=== PATIENT | female | born 1965 | race Two or more races ===

== ENCOUNTER 2016-09-30 20:39 | Emergency (ER) | payer OTHER ==
--- NOTE | 2016-09-30 23:27 | ER Document Report ---
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 She received multiple sedating medications per a family member at the bedside and when he left the room she attempted to get up out of bed and did fall. No loss of consciousness. No vomiting, weakness or numbness. No change from her baseline behavior. She does not take any anticoagulation. Has a history of multiple falls in the past for similar reasons. She has not seen her primary care physician regarding today's concerns. Patient denies any significant pain at time of arrival. Denies that anything improves or worsens or symptoms. History is otherwise limited as patient does not provide meaningful history. TRAVEL OUTSIDE OF THE [place] IN LAST 30 DAYS: No - Related Data Allergies/Adverse Reactions: esomeprazole magnesium [From Nexium] Adverse Reaction (Mild, Verified 01/10/14 07:24) upset stomach Past Medical History - General Information source: Relative - Social History Smoking Status: Never Smoker Frequency of alcohol use: None Drug Abuse: None Family History: Reviewed & Not Pertinent - Past Medical History Cardiac Medical History: Denies: Hx Coronary Artery Disease, Hx Heart Attack, Hx Hypertension Pulmonary Medical History: Denies: Hx Asthma, Hx Bronchitis, Hx COPD, Hx Pneumonia Neurological Medical History: Reports: Hx Seizures. Denies: Hx Cerebrovascular Accident Endocrine Medical History: Reports: Hx Diabetes Mellitus Type 2 Musculoskeltal Medical History: Reports Hx Arthritis Past Surgical History: Reports: Hx Neurologic Surgery. Denies: Hx Hysterectomy - Immunizations Hx Diphtheria, Pertussis, Tetanus Vaccination: Yes Review of Systems - Review of Systems Notes: Constitutional: Negative for fever. Eyes: Negative for visual changes. ENT: Negative for facial injury Cardiovascular: Negative for chest injury. Respiratory: Negative for shortness of breath. Gastrointestinal: Negative for abdominal injury. Genitourinary: Negative for genital injury Musculoskeletal: Negative for back injury. Skin: Positive for laceration/abrasions. Neurological: Positive for head injury. Physical Exam - Vital signs Vitals: Temp Pulse Resp BP Pulse Ox 97.8 F 83 14 114/63 100 09/30/16 20:46 09/30/16 20:46 09/30/16 20:46 09/30/16 20:46 09/30/16 20:46 Interpretation: Normal Notes: PHYSICAL EXAMINATION: GENERAL: Well-appearing, no acute distress. Somnolent but easily woken HEAD: 2 cm vertical laceration on the central posterior scalp without surrounding hematoma, normocephalic. EYES: Pupils equal round and reactive to light, extraocular movements intact, sclera anicteric, conjunctiva are normal. ENT: nares patent, no oral pharyngeal trauma. No hemotympanum, no Hooks's sign , no raccoon eyes. NECK: No midline cervical spine tenderness. Patient able to move their head to 45 bilaterally without any discomfort. LUNGS: Breath sounds clear to auscultation bilaterally and equal. No wheezes rales or rhonchi. HEART: Regular rate and rhythm without murmurs. CHEST WALL: No ecchymosis over the chest wall. ABDOMEN: Soft, nontender, normoactive bowel sounds. No guarding, no rebound. No abdominal bruising EXTREMITIES: Normal range of motion, no pitting or edema. No long bone deformities. BACK: No midline spinal tenderness, step-offs, or deformities. NEUROLOGICAL: Face symmetric. Tongue protrudes midline. Extraocular motions intact. Pupils are 2 mm and equally reactive. No dysarthria. 5 out of 5 strength in both the distal and proximal upper and lower extremities bilaterally. Sensation is grossly intact throughout. PSYCH: Moderately confused which patient's family states is baseline SKIN: Warm, Dry, normal turgor, 2 cm vertical laceration in the posterior scalp Course - Re-evaluation Re-evalutation: 10/01/16 03:33 Patient arrives after a mechanical fall. She did sustain a 2 cm laceration to the central posterior scalp. Tetanus is already up to date. Luann received multiple sedating medications prior to this fall. No focal neurologic deficits on exam, no evidence of basilar skull fracture on exam without evidence of hemotympanum, raccoon eyes, or periauricular hematoma. No papilledema. Patient is not on anticoagulation. No loss of consciousness. No episodes of vomiting. However, at time of my initial assessment patient was quite sedated so CT of the head was obtained to exclude intracranial bleed is the etiology of patient's somnolence. This is negative for any acute intracranial pathology. On reassessment, patient is awake and at her baseline per family at the bedside. The laceration on her scalp was closed with 2 leni.At this time will discharge with return precautions and follow-up recommendations. Verbal discharge instructions given a the bedside and opportunity for questions given. Medication warnings reviewed. Family is in agreement with this plan and has verbalized understanding of return precautions and the need for primary care follow-up in the next 24-72 hours. - Vital Signs Vital signs: Temp Pulse Resp BP Pulse Ox 97.8 F 89 16 115/62 100 09/30/16 20:46 09/30/16 23:46 09/30/16 23:46 09/30/16 23:46 09/30/16 23:46 - Laboratory Laboratory results interpreted by me: 09/30/16 23:38 POC Glucose 221 H - Diagnostic Test Radiology reviewed: Image reviewed, Reports reviewed Radiology results interpreted by me: 10/01/16 03:35 CT head: No acute intracranial bleed Procedures - Laceration/Wound Repair Head Wound length (cm): 2 Wound's Depth, Shape: Superficial Wound explored: Clean Irrigated w/ Saline (mLs): 500 Wound Debrided: Moderate Wound Repaired With: [place] Number of Sutures: 2 - Leni Layer Closure?: No Post-procedure NV exam normal: Yes Complications: No Discharge - Discharge Clinical Impression: Scalp laceration Qualifiers: Encounter type: initial encounter Qualified Code(s): S01.01XA - Laceration without foreign body of scalp, initial encounter Head trauma Qualifiers: Encounter type: initial encounter Qualified Code(s): S09.90XA - Unspecified injury of head, initial encounter Condition: Good Disposition: HOME, SELF-CARE Additional Instructions: You have likely sustained a contusion (bruise) to your head. Your head CT is normal and does not show any evidence of a bleed into your brain. Return if you develop persistent vomiting, weakness, numbness, or confusion. Please return to your primary doctor, the ED, or an urgent care in 7 days for staple removal. Return immediately if you develop spreading redness around the wound, pus from the wound, worsening pain, or a fever of >100.4. Keep the area clean and dry. Wash gently with soap and water twice daily and cover with antibiotic ointment.
[2016-09-30 23:50] VITALS: BP 115/62
== END 2016-09-30 23:45 | disposition home or self-care (01) ==
LOC: ER 20:39
PROC: 0HQ0XZZ Repair Scalp Skin, External Approach (ICD-10-PCS; principal; 2016-09-30)
DX: S01.01XA Laceration without foreign body of scalp, initial encounter (principal); S09.90XA Unspecified injury of head, initial encounter; W19.XXXA Unspecified fall, initial encounter; Z86.73 Personal history of transient ischemic attack (TIA), and cerebral infarction without residual deficits
CPT/HCPCS: 70450; 82962; 99284

== ENCOUNTER → 2016-10-08 | Outpatient (CLI) | payer OTHER | LOC: CRS 10:57 | PROVIDERS: ATTEND Family Medicine | DX: I63.9 Cerebral infarction, unspecified (principal); E11.9 Type 2 diabetes mellitus without complications; G93.9 Disorder of brain, unspecified; F44.5 Conversion disorder with seizures or convulsions; E88.49 Other mitochondrial metabolism disorders | CPT/HCPCS: 83605 ==